=== PATIENT | female | born 1970 | race African-American/Black ===

== ENCOUNTER → 2017-06-22 | Outpatient (CLI) | payer BC ==
--- NOTE | 2017-06-22 11:09 | RAD ---
CT abdomen/pelvis Indication: Left flank pain since Thursday, hematuria. Technique: CT abdomen/pelvis without IV contrast with multiplanar reformats. Comparison: Previous CT scan from 12/20/2004. Findings: Heart is normal in size. No pericardial or pleural effusion. Clear lung bases. The noncontrast appearance of the liver, spleen, gallbladder, pancreas, right adrenal is within normal limits. There is a 1.7 x 1.4 cm nodule in the left adrenal gland. The Hounsfield units are atypical for lipid rich adenoma. No renal stones. No hydronephrosis. There are areas of high attenuation in the medulla of the kidneys which are also seen on previous study from 2004.. No perinephric fluid collection. No hydroureter. No bowel obstruction. No free pelvic or abdominal fluid. No retroperitoneal adenopathy. Prominent mesenteric lymph nodes noted, the largest measuring 1.1 x 0.7 cm (series 2 image 51). Bilateral external iliac chain lymph nodes noted, the largest on the right measuring 2.0 x 0.9 cm (series 2 image 121). These are nonspecific and may be reactive. Uterus is not well visualized. Bilateral fluid-filled tubular structures are seen in the adnexa. Bilateral ovaries are visualized. No inflammatory changes are seen in the parametrium. Bladder is decompressed limiting optimal evaluation. Small omental fat-containing umbilical hernia. No suspicious bony lesions. Impression: 1. No renal stones. No hydronephrosis. 2. 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 3. Bilateral hydrosalpinx. 4. Left adrenal nodule, new from prior study from 2004. The Hounsfield units are atypical for lipid rich adenoma. This nodule remains indeterminate. Nonemergent MRI of the abdomen recommended for further evaluation. PQRS Compliance Statement: One or more of the following individualized dose reduction techniques were utilized for this examination: 1. Automated exposure control 2. Adjustment of the mA and/or kV according to patient size 3. Use of iterative reconstruction technique
== END | disposition home or self-care (01) ==
LOC: CT 09:59
PROVIDERS: ATTEND Nurse Practitioner Family
DX: N70.11 Chronic salpingitis (principal); K42.9 Umbilical hernia without obstruction or gangrene; E27.8 Other specified disorders of adrenal gland
CPT/HCPCS: 74176